=== PATIENT | female | born 1960 | race Caucasian/White ===

== ENCOUNTER 2017-02-27 13:07 | Day surgery (SDC) | payer MEDICARE ==
--- NOTE | 2017-02-27 06:55 | History and Physical Report ---
DATE: 02/27/2017. CHIEF COMPLAINT AND HISTORY OF CHIEF COMPLAINT: This patient presents with a history of a postcervical laminectomy radiculitis. On January 24, 2017, a spinal cord stimulator trial was conducted with 75 to 80 percent pain control. Due to the failure of all therapies and the success of the trial, she presents today for implantation of a permanent system. PAST MEDICAL HISTORY: Hypothyroidism, peripheral neuropathy, hypertension, diverticular disease, depression. PAST SURGICAL HISTORY: Gallbladder surgery, knee surgery, cervical spine fusion , lumbar spine fusion, hysterectomy. MEDICATIONS ON ADMISSION: List provided. ALLERGIES: Cefzil and sulfa. SOCIAL HISTORY: Social alcohol, caffeine. FAMILY HISTORY: Thyroid disease, asthma, diabetes, coronary artery disease, hypertension, cancer. REVIEW OF SYSTEMS: The patient seems appropriate and in no acute distress. The remainder of the systems review shows glasses, headaches, abdominal pain, anxiety disorder. PHYSICAL EXAMINATION: General: Height is 5 feet, 9 inches. Weight is 140 pounds. Vital Signs: Unavailable. HEENT: Within Normal limits. Lungs: Clear. Heart: Regular rate and rhythm. Abdomen: Nontender. Musculoskeletal: Examination of the musculoskeletal systems shows pain and tenderness in the cervical spine, somewhat more right than left. There appear to be mild motor and sensory field deficits to the right. Sensory ortiz are intact. Neurologic: Cranial nerves intact. IMPRESSION: 1. POSTCERVICAL LAMINECTOMY SYNDROME, ICD-10 CODE M96.1. 2. CERVICAL RADICULITIS, ICD-10 CODE M54.13. PLAN: The patient is here for implantation of a permanent spinal cord stimulator based upon a successful trial. She understands the potential risks, side effects, and complications. These include dural puncture, spinal headache , spinal cord injury, nerve root injury, and failure of the implant. She has consented. The procedure will be considered outpatient, although an overnight stay will be evaluated. JOB NUMBER: [id number] cc: Libia Castillo
[~2017-02-27 13:07] MED LIST: ACETAMINOPHEN 1,000 MG/100 ML BTL IV ONE; CLINDAMYCIN 600MG/50ML PREMIX 600 MG/50 ML BAG IVPB ONE; FAMOTIDINE 20MG TABLET PO ONE; MECLIZINE 25 MG TABLET PO ONE; METOCLOPRAMIDE 10 MG TABLET PO ONE
[2017-02-27] MEDS ORDERED: *PACU ONLY* KETAMINE HCL 10 MG/ML (20ML) VIAL IV ONE (13:08)
[2017-02-27] MEDS ORDERED: CEFAZOLIN 1G VIAL IM ONE (13:08)
[2017-02-27] MEDS ORDERED: PROPOFOL 10 MG/ML VIAL IV ONE (13:08)
[2017-02-27] MEDS ORDERED: LIDOCAINE 2% MDV (20MG/ML) 20ML VIAL IV ONE (13:08)
[2017-02-27] MEDS ORDERED: FLUMAZENIL 1MG/10ML VIAL IV ONE (13:08)
[2017-02-27] MEDS ORDERED: MIDAZOLAM HCL 2MG/2ML VIAL IV ONE (13:08)
[2017-02-27] MEDS ORDERED: RINGERS SOLUTION,LACTATED 1,000 ML IV PRN (17:31)
[2017-02-27] MEDS: CLINDAMYCIN 600MG/50ML PREMIX 600 MG/50 ML BAG IVPB SCH (20:21)
[2017-02-27] MEDS ORDERED: SENNOSIDES/DOCUSATE SODIUM UD CAPSULE PO PRN ×2 (21:00)
[2017-02-27] MEDS ORDERED: ACETAMINOPHEN 325 MG TAB PO PRN ×2 (21:00)
[2017-02-27] MEDS ORDERED: DIPHENHYDRAMINE HCL 25 MG CAPSULE PO PRN ×2 (21:00)
[2017-02-27] MEDS ORDERED: METOCLOPRAMIDE HCL 10 MG/2 ML VIAL IVP PRN (21:00)
[2017-02-27] MEDS ORDERED: DIPHENHYDRAMINE HCL IV 50 MG/ML VIAL IVP PRN ×2 (21:00)
[2017-02-27] MEDS ORDERED: AL HYDROX/MAG HYDROX 30ML UD PO PRN (21:00)
[2017-02-27] MEDS ORDERED: HYDROMORPHONE HCL 1 MG/ML CPJ IM PRN (21:00)
[2017-02-27] MEDS ORDERED: HYDROCODONE/APAP 7.5/325MG TABLET PO PRN ×2 (21:00)
[2017-02-27] MEDS ORDERED: OXYCODONE/APAP 10MG-325MG TABLET PO PRN (21:00)
[2017-02-27] MEDS ORDERED: METOCLOPRAMIDE 10 MG TABLET PO PRN (21:00)
[2017-02-27] MEDS ORDERED: TEMAZEPAM 15 MG CAPSULE PO PRN ×2 (21:00)
[2017-02-27] MEDS ORDERED: HYDROMORPHONE HCL 2 MG/ML VIAL IM PRN (21:00)
[2017-02-27] MEDS: OXYCODONE/APAP 10MG-325MG TABLET PO PRN (21:39)
[2017-02-27] MEDS ORDERED: LIALDA 1.2 GM PO SCH (22:00)
[2017-02-27] MEDS ORDERED: METFORMIN 500 MG TABLET PO SCH (22:00)
[2017-02-28] MEDS: OXYCODONE/APAP 10MG-325MG TABLET PO PRN ×2 (04:56→09:14)
[2017-02-28] MEDS: CLINDAMYCIN 600MG/50ML PREMIX 600 MG/50 ML BAG IVPB SCH (04:57)
--- NOTE | 2017-02-28 05:41 | Operative Note - Ferro ---
DATE OF SURGERY: 02/27/2017. PREOPERATIVE DIAGNOSIS: 1. POSTCERVICAL LAMINECTOMY SYNDROME, ICD-10 CODE M96.1. 2. CERVICAL RADICULITIS, ICD-10 CODE M54.13. POSTOPERATIVE DIAGNOSIS: 1. POSTCERVICAL LAMINECTOMY SYNDROME, ICD-10 CODE M96.1. 2. CERVICAL RADICULITIS, ICD-10 CODE M54.13. OPERATION: 1. Fluoroscopically guided left epidural access at T1-2. Placement of spinal cord stimulator lead 1, a [employer] Infinion 16 with 16 electrodes, positioned left C2. 2. Fluoroscopically guided left epidural access at T2-3. Placement of spinal cord stimulator lead 2, a [employer] Infinion 16 with 16 electrodes, positioned right C2. 3. Complex programming of lead 1 over 20 minutes followed by complex programming of lead 2 over 20 minutes. 4. Incision, subcutaneous dissection, and anchoring of lead 1 and lead 2 to supraspinous fascia using a [employer] locking anchor. 5. Incision, subcutaneous dissection, and creation of subcutaneous pouch at left posterosuperior gluteal margin for placement of generator identified as a [employer] programmable rechargeable. 6. Tunneling between pouches. Placement of the external portion of lead 1 and lead 2 into the generator pouch, each bifurcated extension interfaced to the extension. Each extension interfaced to internal pulse generator. 7. Placement of generator into pouch, securing to posterior fascia with nonabsorbable suture. Closure of both incisions with Vicryl for the fascia and running subcuticular Vicryl for the skin. Dermabond closure. 8. Complex recovery room programming of the internal generator for home use, two stimulators for 20 minutes. SURGEON: Jose Sanchez D.O. ANESTHESIA: Local sedation. ANESTHESIA PROVIDER: Veronica Castillo CRNA. INDICATION: This patient presents with a postcervical laminectomy radiculitis. Due to the failure of therapies, a stimulator trial was conducted on January 24, 2017 which resulted in 75% pain control. Due to the failure of all therapy and the success of the trial, she presents for implantation of a permanent system. PROCEDURE: Intravenous line, vital sign monitoring, and intravenous sedation. Prepped and draped with sterile technique. Under imaging, the left epidural interspaces at T1-2 and T2-3 were marked and infiltrated separately with epidural access needles with loss of resistance. At 1-2 spinal cord stimulator lead 1, a [employer] Infinion 16 with 16 electrodes was positioned left upper electrode C2. Epidural acces with similar technique at T2-3 on the left with spinal cord stimulator lead 2, a [employer] Infinion 16 with 16 electrodes, was positioned right at C2. Complex programming of lead 1 over 20 minutes followed by complex programming of lead 2 over 20 minutes. This ultimately resulted in patterns of stimulation across the neck and into the shoulders. The patient indicated we had all of the areas of her pain. She was given the options of implanting, continuing to program, or removing. She opted to implant. The questions were repeated with the same response. She was resedated by Anesthesia. The skin above and below each needle was infiltrated. An incision was made and subcutaneous dissection was conducted to the supraspinous fascia. The needles were removed, and each lead was anchored to the supraspinous fascia with a [employer] locking anchor and nonabsorbable suture. At the left posterior gluteal margin, a site picked by the patient for the generator identified as a [employer] programmable rechargeable, the skin was infiltrated. An incision was made and subcutaneous dissection was conducted to form a pouch of suitable size and depth. A tunnelling tool was then used to carry the leads into the generator pouch. Each lead with its bifurcated extension was then interfaced with a separate extension. Each extension was then interfaced to the generator. A nonabsorbable suture was then used to secure the generator at the posterior pouch. The leads were coiled and placed into their own pouches. Both incisions were then closed with Vicryl for the fascia and a running subcuticular Vicryl for the skin. Dermabond closure approximated the edges of each wound. She was transported to the recovery room stable, showing no side effects from the procedure or the sedation. Because of the time of day and the amount of driving necessary for this patient to get home, she will be kept overnight for observation. DISCHARGE INSTRUCTIONS: 1. The sites are to remain clean and dry. No showering or bathing in any way. Although the Dermabond will allow showering in 24 hours, she should not scrub the sites. 2. Standard medications are to be resumed including Levaquin the antibiotic 500 mg once a day for 14 days. Should there be problems with the antibiotic, she is to contact the clinic for a substitution. 3. The office will contact the patient within the next 24 to 48 hours to set up an appointment to evaluate the incisions within approximately 7 to 10 days. Her activity should stay low, limiting bend, twist, push, and pull, and maintaining only minimal activity levels until she is evaluated for the incisions. At that point, she will be cleared for further activities. 4. All other instructions were provided. Numbers to contact with problems were given. At that point she will be discharged. cc: Nickolas Lilly M.D. JOB NUMBER: [id number] MTDD
[2017-02-28] MEDS ORDERED: THYROID PO SCH (07:00)
[2017-02-28] MEDS ORDERED: METFORMIN 500 MG TABLET PO SCH (08:00)
[2017-02-28] MEDS ORDERED: METOPROLOL 25 MG PO SCH (10:00)
[2017-02-28] MEDS ORDERED: LISINOPRIL 5 MG TABLET PO SCH (10:00)
[2017-02-28] MEDS ORDERED: LORATADINE 10 MG TABLET PO SCH (10:00)
[2017-02-28] MEDS ORDERED: ACIPHEX 20 MG PO SCH (10:00)
[2017-02-28] MEDS ORDERED: LIALDA 1.2 GM PO SCH (12:00)
--- NOTE | 2017-03-01 11:35 | RADIOLOGY REPORT ---
EXAM: CERVICAL, THORACIC AND LUMBAR SPINE HISTORY: SCS IMPLANT. TECHNIQUE: Frontal view of the cervical and upper thoracic spine as well as frontal view of the lumbar spine were obtained. Comparison: None. Encounter: Initial. FINDINGS: Power pack overlies the left lower quadrant. Stimulator leads extend cephalad in the cervical spine terminating at the C1-C2 level lower cervical fixation plate. IMPRESSION: STIMULATOR LEADS OVERLYING THE C1-C2 SEGMENT ABOVE. JOB NUMBER: [id number] MTDD
== END 2017-02-28 10:20 | disposition home or self-care (01) ==
LOC: SUR 13:07 → MEDSURG 17:00 → SUR 02-28 10:20
PROVIDERS: ATTEND Pain Medicine Interventional Pain Medicine
DX: M96.1 Postlaminectomy syndrome, not elsewhere classified (principal); M54.13 Radiculopathy, cervicothoracic region; E03.9 Hypothyroidism, unspecified; I10 Essential (primary) hypertension; E11.9 Type 2 diabetes mellitus without complications; Z79.84 Long term (current) use of oral hypoglycemic drugs
CPT/HCPCS: 72020; 94760; 94761; 95972; C1820; C1883; J0690; J7120

== ENCOUNTER 2017-06-12 08:20 | Day surgery (SDC) | payer MEDICARE ==
[2017-06-12] MEDS ORDERED: PROPOFOL 10 MG/ML VIAL IV ONE (08:21)
[2017-06-12] MEDS ORDERED: LIDOCAINE 1% W/EPI 1:200,000 MPF 30ML SQ ONE (08:21)
[2017-06-12] MEDS ORDERED: FENTANYL PF 100MCG/2ML VIAL IV ONE (08:21)
[2017-06-12] MEDS ORDERED: MORPHINE SULFATE 5 MG/ML PFS IVP ONE (08:21)
[2017-06-12] MEDS ORDERED: FLUMAZENIL 1MG/10ML VIAL IV ONE (08:21)
[2017-06-12] MEDS ORDERED: BUPIVACAINE 0.5% W/EPI MPF 30 ML VIAL IVP ONE (08:21)
[2017-06-12] MEDS ORDERED: MIDAZOLAM HCL 2MG/2ML VIAL IV ONE (08:21)
[2017-06-12] MEDS ORDERED: LIDOCAINE 2% MDV (20MG/ML) 20ML VIAL IV ONE (08:21)
--- NOTE | 2017-06-12 08:59 | History and Physical - Ferro ---
CHIEF COMPLAINT/HISTORY OF CHIEF COMPLAINT: This patient presents with a history of intractable lumbar radiculitis. A spinal cord stimulator trial was conducted with 75-85% pain control. Due to the failure of therapy, the patient presents today for implantation of permanent system. PAST MEDICAL HISTORY: Noncontributory. PAST SURGICAL HISTORY: Spinal cord stimulator cervical. MEDICATIONS ON ADMISSION: List to be provided. ALLERGIES: CEFZIL AND SULFA. FAMILY/PSYCHOSOCIAL HISTORY: Unchanged from cervical stimulator procedure. SYSTEMS REVIEW: The patient is appropriate in no acute distress. PHYSICAL EXAMINATION: Height and weight are not known. Vital signs are not available. HEENT: Within normal limits. LUNGS: Clear. HEART: Regular rate and rhythm. ABDOMEN: Nontender. MUSCULOSKELETAL: Examination of the musculoskeletal system shows diffuse tenderness lumbar spine adjacent laminectomy scar. Range of motion does cause pain moving into the low back and hip areas, somewhat more right than left. Motor and sensory field function is intact. There are mild deficits across sensory motor functionality to the right lower extremity. Ambulation - No assistive device utilized. NEUROLOGIC: Cranial nerves are intact. IMPRESSION: 1. POST LUMBAR LAMINECTOMY SYNDROME, ICD-10 CODE M96.1. 2. LUMBAR RADICULITIS, ICD-10 CODE M54.16 AND M54.17. PLAN: The patient is here for spinal cord stimulator implant lumbar spine based on a successful trial. The patient had a previous cervical stimulator implant with what was identified as the internal generator of choice, since that time the wave rider pulse generator has evolved with greater functionality , battery life and potential improvement in her overall pain control. We will be replacing the previous generator with a new generator to improve functionality as well as battery life. The procedure will be considered outpatient although an overnight stay will be evaluated because of the distance required for this patient to drive. All other risks, side effect, and complications have been carefully reviewed and discussed. JOB NUMBER: [id number] [facility]
[2017-06-12] MEDS ORDERED: ALBUTEROL SULFATE (0.083%) 2.5 MG/3 ML NEB INH ONE (12:18)
[2017-06-12] MEDS ORDERED: HYDROCODONE/APAP 7.5/325MG TABLET PO PRN (12:21)
[2017-06-12] MEDS ORDERED: AL HYDROX/MAG HYDROX 30ML UD PO PRN (12:21)
[2017-06-12] MEDS ORDERED: OXYCODONE/APAP 10MG-325MG TABLET PO PRN ×2 (12:21)
[2017-06-12] MEDS ORDERED: METOCLOPRAMIDE HCL 10 MG/2 ML VIAL IVP PRN (12:21)
[2017-06-12] MEDS ORDERED: TEMAZEPAM 15 MG CAPSULE PO PRN ×2 (12:21)
[2017-06-12] MEDS ORDERED: HYDROMORPHONE HCL 1 MG/ML SYRINGE IM PRN (12:21)
[2017-06-12] MEDS ORDERED: DIPHENHYDRAMINE HCL IV 50 MG/ML VIAL IVP PRN ×2 (12:21)
[2017-06-12] MEDS ORDERED: METOCLOPRAMIDE 10 MG TABLET PO PRN (12:21)
[2017-06-12] MEDS ORDERED: ACETAMINOPHEN 325 MG TAB PO PRN ×2 (12:21)
[2017-06-12] MEDS ORDERED: DIPHENHYDRAMINE HCL 25 MG CAPSULE PO PRN ×2 (12:21)
[2017-06-12] MEDS ORDERED: HYDROMORPHONE HCL 2 MG/ML VIAL IM PRN (12:21)
[2017-06-12] MEDS ORDERED: SENNOSIDES/DOCUSATE SODIUM UD CAPSULE PO PRN ×2 (12:21)
[2017-06-12] MEDS ORDERED: MORPHINE 15 MG PO PRN (14:26)
[2017-06-12] MEDS ORDERED: PATIENT OWN MED: LORAZEPAM 0.5 MG PO PRN (14:31)
[2017-06-12] MEDS ORDERED: GLYCOPYRROLATE PO SCH (15:00)
[2017-06-12] MEDS: CLINDAMYCIN 600MG/50ML PREMIX 600 MG/50 ML BAG IVPB SCH (17:21)
[2017-06-12] MEDS: HYDROCODONE/APAP 7.5/325MG TABLET PO PRN ×2 (17:22→20:17)
[2017-06-12] MEDS ORDERED: PATIENT OWN MED: METFORMIN ER 500 MG PO SCH (18:00)
[2017-06-12] MEDS ORDERED: LIALDA 1.2 GM PO SCH (18:00)
[2017-06-12] MEDS ORDERED: DULOXETINE 30 MG PO SCH (18:00)
[2017-06-12] MEDS: GABAPENTIN 800 MG PO SCH ×2 (18:44→22:50)
[2017-06-12] MEDS: MORPHINE 15 MG PO SCH ×2 (18:46→22:52)
[2017-06-12] MEDS: MORPHINE 30 MG PO SCH (18:46)
[2017-06-12] MEDS ORDERED: PATIENT OWN MED: LORATADINE 10 MG PO SCH (22:00)
[2017-06-12] MEDS ORDERED: PATIENT OWN MED: METOPROLOL 25 MG PO SCH (22:00)
[2017-06-12] MEDS ORDERED: 0.9 % SODIUM CHLORIDE 10ML SYR IVP SCH (22:00)
[2017-06-13] MEDS: HYDROCODONE/APAP 7.5/325MG TABLET PO PRN ×2 (02:14→06:35)
[2017-06-13] MEDS: CLINDAMYCIN 600MG/50ML PREMIX 600 MG/50 ML BAG IVPB SCH (04:16)
[2017-06-13] MEDS ORDERED: RABEPRAZOLE 20 MG PO SCH (06:00)
[2017-06-13] MEDS ORDERED: THYROID PO SCH (06:00)
[2017-06-13] MEDS: GABAPENTIN 800 MG PO SCH (06:36)
[2017-06-13] MEDS: MORPHINE 15 MG PO SCH (06:37)
[2017-06-13] MEDS: MORPHINE 30 MG PO SCH (06:37)
--- NOTE | 2017-06-13 08:08 | Operative Note - Ferro ---
DATE: 06/12/2017. PREOPERATIVE DIAGNOSIS: 1. POSTLUMBAR LAMINECTOMY SYNDROME, ICD-10 CODE M96.1. 2. LUMBAR RADICULITIS, ICD-10 CODE M54.16 AND M54.17. 3. CERVICAL SPINAL CORD STIMULATOR, LEFT POSTERIOR GLUTEAL MARGIN GENERATOR UPGRADE AND REPLACEMENT. POSTOPERATIVE DIAGNOSIS: 1. POSTLUMBAR LAMINECTOMY SYNDROME, ICD-10 CODE M96.1. 2. LUMBAR RADICULITIS, ICD-10 CODE M54.16 AND M54.17. 3. CERVICAL SPINAL CORD STIMULATOR, LEFT POSTERIOR GLUTEAL MARGIN GENERATOR UPGRADE AND REPLACEMENT. OPERATION: 1. Fluoroscopically guided epidural access left at T12-L1. Placement of spinal cord stimulator lead 1, a [employer] Infinion 16 with 16 electrodes, positioned left T7. 2. Fluoroscopically guided epidural access left at T11-12. Placement of spinal cord stimulator lead 2, a [employer] Infinion 16 with 16 electrodes, positioned right T7. 3. Complex programming of lead 1 over 20 minutes followed by complex programming of lead 2 over 20 minutes. 4. Incision and subcutaneous dissection to the supraspinous fascia. Removal of needles, and anchoring each lead to the supraspinous fascia with a [employer] locking anchor. 5. Incision, subcutaneous dissection, and creation of subcutaneous pouch at right posterosuperior gluteal margin for placement of the generator identified as a [employer] programmable rechargeable Wave Jasson model. 6. Tunneling between pouches. Placement of external portion of lead 1 and lead 2 into generator pouch, each lead interfaced to the [employer] internal pulse generator. 7. Placement of generator into pouch, securing to the fascia with nonabsorbable suture. 8. Closure of midline incision and right posterior gluteal margin incision with Vicryl for the fascia and running subcuticular Vicryl for the skin. Dermabond closure. 9. Incision, subcutaneous dissection, and removal and replacement at left posterior gluteal margin of cervical generator with Wave Jasson internal pulse generator. 10. Closure of the incision with Vicryl for the fascia and running subcuticular Vicryl for the skin. Dermabond closure. SURGEON: Jose Sanchez D.O. ANESTHESIA: Local sedation. ANESTHESIA PROVIDER: Veronica Castillo CRNA INDICATION: This patient presents with a history of intractable postlaminectomy radiculitis, lumbar spine, into both legs. Due to the failure of therapy, a stimulator trial was conducted with 75 to 85 percent pain control. Due to the failure of all therapies she is here for implantation of a spinal cord stimulator internal generator. Along with this, a previously implanted cervical stimulator has an older model generator which is being replaced today with an upgraded [employer]asson pulse generator with improved battery life and programmable. DESCRIPTION OF PROCEDURE: Intravenous lines, vital sign monitoring, and intravenous sedation. Prepped and draped with sterile technique. Under imaging , the epidural interspaces at T12-L1 and 11-12 on the left were marked and infiltrated. Using two separate curved Epimed needles were positioned with loss of resistance. At 12-1 spinal cord stimulator lead 1, a [employer] Infinion 16 with 16 electrodes, was positioned left at T7. Epidural access with similar technique at 11-12. Spinal cord stimulator lead 2, a [employer] Infinion 16 with 16 electrodes, was advanced and positioned left at T7. Epidural access with similar technique at 11-12. Spinal cord stimulator lead 2, also a [employer] Infinion 16 with 16 electrodes, was positioned right at midline of T-7. Complex programming of lead 1 over 20 minutes was followed by complex programming of lead 2 over 20 minutes. This resulted in complete patterns of stimulation across the back and into the legs. The patient indicated we were in all of the areas. She was then given the option to implant the system, continue to program, or remove the system. She opted to implant the system. Questions were repeated with the same response. The skin above an below the needles was infiltrated. Incision was made and subcutaneous dissection was conducted to the supraspinous fascia. Each needle was removed and the leads were anchored to the supraspinous fascia with a a [employer] locking anchor. At the right posterior gluteal margin, the site picked by the patient for the generator, the skin was infiltrated. An incision was made and subcutaneous dissection was conducted to the deep fascia. A tunneling tool was used to carry the leads into the pouch, and then each lead was then interfaced with a [employer] internal pulse generator. Antibiotic irrigation and Bovie for hemostasis. The generator was placed into the pouch and secured to the fascia with nonabsorbable suture. Both incisions were then closed with Vicryl for the fascia and a running subcuticular Vicryl for the skin. Dermabond closure. A the left posterior gluteal margin, the generator site for the cervical stimulator, this was infiltrated. An incision was made, and subcutaneous dissection was conducted to the generator pouch. It was opened and the generator was exteriorized and from the leads. A [employer]ass[employer] generator was then placed onto the field and interfaced with the indwelling leads. Antibiotic irrigation and Bovie for hemostasis. The generator was secured to the fascia with nonabsorbable sure. The incision was then closed with Vicryl for the fascia and a running subcuticular Vicryl for the skin. Dermabond closure. She was transported to the recovery room stable, showing no side effects from the procedure or the sedation. When fully awake and alert, complex programming of the two generators was performed. This re-established stimulation and pain control to all of the appropriate areas. Because of the distance of travel to get home, she will be kept overnight for observation and will then be discharged in the morning. DISCHARGE INSTRUCTIONS: 1. The sites are to remain clean and dry. No showering or bathing in any way that would disrupt the dressings. If this happens, contact the clinic. 2. Standard medications to be resumed including the antibiotic. 3. The office will contact the patient at home and set up an appointment in seven to ten days to evaluate the sites. Until then, her activities should stay low. The Dermabond dressings should stay in place. She may shower but not sit in water or tubs. The antibiotic will be taken for the next ten days. The antibiotic will be Clindamycin which she tolerated previously. 5. All other instructions were provided and numbers to contact with problems were given. She will be discharged in the morning. JOB NUMBER: [id number] cc: Dr. Nickolas TATUM
[2017-06-13] MEDS ORDERED: LISINOPRIL 5 MG TABLET PO SCH (10:00)
[2017-06-13] MEDS ORDERED: PATIENT OWN MED: AZATHIOPRINE 50 MG PO SCH (10:00)
[2017-06-13] MEDS ORDERED: PATIENT OWN MED: MULTIVITAMIN PO SCH (10:00)
[2017-06-13] MEDS ORDERED: GLYCOPYRROLATE PO SCH (10:00)
[2017-06-13] MEDS ORDERED: BUPROPION 75 MG PO SCH (10:00)
[2017-06-13] MEDS ORDERED: VITAMIN D 1000 UNIT PO SCH (10:00)
--- NOTE | 2017-06-13 18:08 | RADIOLOGY REPORT ---
EXAM: SPINE, 1 VIEW HISTORY: STIMULATOR PLACEMENT. TECHNIQUE: Two views of the lumbar spine were performed. FINDINGS: Stimulator lead tips are at the T7 and T8 level. IMPRESSION: STIMULATOR LEAD TIPS ARE AT THE T7 AND T8 LEVEL. JOB NUMBER: [id number] MTDD
== END 2017-06-13 09:40 | disposition home or self-care (01) ==
LOC: SUR 08:20 → MEDSURG 12:57 → SUR 06-13 09:40
PROVIDERS: ATTEND Pain Medicine Interventional Pain Medicine
DX: M96.1 Postlaminectomy syndrome, not elsewhere classified (principal); M54.16 Radiculopathy, lumbar region; M54.17 Radiculopathy, lumbosacral region; I10 Essential (primary) hypertension; E03.9 Hypothyroidism, unspecified
CPT/HCPCS: 95972; 36416; 82948; 72020; 94640; 63685; 63650 ×2; 01936; J3010; J2270; C1820; C1883; J7613